=== PATIENT | female | born 1955 | race Caucasian/White ===

== ENCOUNTER → 2017-04-08 | Outpatient (CLI) | payer BC ==
--- NOTE | 2017-04-09 11:19 | MAM ---
EXAM DESCRIPTION: Screening Mammogram,Bilateral CLINICAL HISTORY: 61 yearsFemaleSCREENING. Postmenopausal. Taking HRT five or more years ago. Prior left breast biopsy and lumpectomy.. COMPARISON: Digital screening bilateral examination 11/27/2015 and 09/16/2012. Left breast digital diagnostic mammogram and targeted left breast ultrasound 12/28/2015. Ultrasound-guided needle biopsy 01/25/2016.. No prior reports available. TECHNIQUE: Bilateral CC and MLO projection full-field images, digital screening mammographic technique. CAD was utilized. FINDINGS: The breast parenchymal density pattern is: Scattered areas of fibroglandular density. No skin thickening or nipple retraction . Focal asymmetry in the posterior third of the upper inner quadrant of the left breast at the 1100 clock position is no longer visualized. Oval-shaped fatty necrosis is now seen in the same location. No localization clip is visualized. Bilateral axillary lymph nodes are present. No focal, stellate mass or density, focal asymmetry , and no suspicious microcalcifications bilaterally. IMPRESSION: BI-RADS CATEGORY: 2 - BENIGN FINDINGS. FOLLOW UP: Return to routine digital bilateral screening, one year interval from March 2017. Written communication explaining the findings and follow-up, will be mailed to the patient and referring health care provider. According to the [employer], yearly mammograms are recommended starting at age 40 and continuing as long as a woman is in good health. Any breast change noted on a breast self-exam should be reported promptly to the patient's healthcare provider. Breast MRI is recommended for women with an approximately 20-25% or greater lifetime risk of breast cancer, including women with a strong family history of breast or ovarian cancer and women who have been treated for Hodgkin's disease. A negative mammographic report should not delay tissue diagnosis in patients with significant clinical history or physical findings. Extremely dense breast tissue limits the sensitivity of digital mammography. Electronically signed by: Onel Santiago MD 04/09/2017 11:18 AM CDT Workstation: [id number]
== END ==
LOC: US 11:12
PROVIDERS: ATTEND Family Medicine
DX: Z12.31 Encounter for screening mammogram for malignant neoplasm of breast (principal)

== ENCOUNTER → 2018-01-05 | Outpatient (CLI) | payer BC | END | disposition home or self-care (01) | LOC: GMAL 10:55 | PROVIDERS: ATTEND Family Medicine | DX: Z00.00 Encounter for general adult medical examination without abnormal findings (principal) ==

== ENCOUNTER → 2018-04-16 | Outpatient (CLI) | payer BC ==
--- NOTE | 2018-04-20 08:16 | MAM ---
EXAM DESCRIPTION: 3D Screening BILATERAL : Digital Mammography. CLINICAL HISTORY: 62 years Female SCREEN . No complaints. Left breast cancer with lumpectomy. Sister with breast cancer. Childbirth. Postmenopausal. Has taken HRT 5 or more years ago.. COMPARISON: Digital screening bilateral study 04/08/2017. Report from prior examination also reviewed. TECHNIQUE: Bilateral CC and MLO projection full-field images, 3-D tomosynthesis digital mammographic technique. CAD not utilized. FINDINGS: The breast parenchymal density pattern is: heterogeneously dense breast tissue, which may obscure small masses. No skin thickening or nipple retraction. Right axillary lymph node. Possible intramammary lymph node on the right. Region of fat necrosis with oval-shaped fatty nodule in the posterior third of the left breast at the 12:00 position approximately 8 cm from the nipple stable since the prior study. This is at the site of prior lumpectomy. No new focal, stellate mass or density, focal asymmetry , and no suspicious microcalcifications bilaterally. Stable mammograms compared to prior study, taking into account differences in mammographic technique. IMPRESSION: BI-RADS CATEGORY: 2 - BENIGN FINDINGS. FOLLOW UP: Routine digital bilateral screening, one year interval from March 2018. Written communication explaining the IMPRESSION and follow-up, will be mailed to the patient and referring health care provider. According to the [employer], yearly mammograms are recommended starting at age 40 and continuing as long as a woman is in good health. Any breast change noted on a breast self-exam should be reported promptly to the patient's healthcare provider. Breast MRI is recommended for women with an approximately 20-25% or greater lifetime risk of breast cancer, including women with a strong family history of breast or ovarian cancer and women who have been treated for Hodgkin's disease. A negative mammographic report should not delay tissue diagnosis in patients with significant clinical history or physical findings. Extremely dense breast tissue limits the sensitivity of digital mammography. Electronically signed by: Onel Santiago MD 04/20/2018 8:15 AM CDT
== END ==
LOC: MAMMO 07:56
PROVIDERS: ATTEND Family Medicine
DX: Z12.31 Encounter for screening mammogram for malignant neoplasm of breast (principal)

== ENCOUNTER → 2018-12-03 | Outpatient (CLI) | payer BC ==
--- NOTE | 2018-12-03 16:28 | CT ---
EXAM DESCRIPTION: Soft Tissue Neck w/Contrast: Computed Tomography CLINICAL HISTORY: 63 years Female, LYMPHADENOPATHY R59.9. Neck Pain diffuse. COMPARISON: None. TECHNIQUE: Spiral, axial 2.5 x 2.5 mm scans through the neck soft tissues after infusion of IV contrast. Sagittal and coronal 2.0 mm reconstructions. No adverse reactions. Total Exam DLP: 326.18 mGy-cm. This exam was performed according to our departmental CT dose-optimization program which includes automated exposure control, adjustment of the mA and/or kV according to patient size and/or use of iterative reconstruction technique; to reduce radiation dose to as low as reasonably achievable (ALARA). FINDINGS: 8 x 5 mm enhancing nodule along the lateral margin of the right parotid gland on axial series 2, image 22. Central radiolucency suggests a lymph node. Slightly smaller similar-appearing node on the outer lateral margin of the superior left parotid gland. No other enhancing masses or nodules in the right parotid gland or left parotid gland with other smaller nodes seen bilaterally. Bilateral submandibular glands unremarkable with small adjacent nodes. Sublingual glands are negative. No abnormal enhancement mass or fluid in the subcutaneous adipose tissue. 6 mm and 3 mm short axis lymph nodes in the right carotid space. Smaller nodes in the left carotid space. Partially enhancing lobulated soft tissue mass abutting the right posterior tongue base and partially effacing the right vallecula and extending to the right epiglottis. Dimensions 1.2 x 1.1 cm in the axial plane and 1.9 cm craniocaudal axis. Fat planes in the adjacent parapharyngeal tissues are not well-defined. Thyroid gland unremarkable. No significant disease in the included lung. Arthrosis atlantoaxial joint. Grade 1 anterolisthesis C5-6 and spondylosis C6-7 with narrowing of the neural foramina and canal. IMPRESSION: 1. Mass at the right tongue base also involving the right epiglottis and partially effacing the right vallecula, and maximum dimension almost 2 cm craniocaudal. Malignancy is suspected, more likely than inflammatory process. Loss of fat planes between the hypopharynx and the right submandibular gland. This may indicate involvement of parapharyngeal lymph nodes. Consider laryngoscopic correlation. 2. Small lymph nodes in the bilateral neck, slightly larger in the right carotid space. 3. Spondylosis and abnormal alignment of the cervical spine at several levels. Electronically signed by: Onel Santiago MD 12/03/2018 4:25 PM [facility]
== END ==
LOC: CT 08:50
PROVIDERS: ATTEND Family Medicine
DX: R59.9 Enlarged lymph nodes, unspecified (principal); R22.0 Localized swelling, mass and lump, head; M47.892 Other spondylosis, cervical region

== ENCOUNTER → 2019-04-23 | Outpatient (CLI) | payer BC ==
--- NOTE | 2019-04-26 16:21 | MAM ---
EXAM DESCRIPTION: 3D Screening BILATERAL : Digital Mammography. CLINICAL HISTORY: 63 years Female ANNUAL SCREENING . Breast cancer 3 years left. Lumpectomy. Sister with breast cancer. Childbirth. Postmenopausal. Taking HRT 5 or more years ago.. Lifetime risk of developing breast cancer (Tyrer-Cuzick model)(%): Not calculated due to personal history of breast cancer. COMPARISON: Lateral screening digital breast tomosynthesis 04/16/2018. TECHNIQUE: Bilateral CC and MLO projection full-field images, digital tomosynthesis mammographic technique. Bilateral digital 2-D full-field MLO images. CAD not available for tomosynthesis or 2-D images. FINDINGS: The breast parenchymal density pattern is: Heterogeneously dense breast tissue, which may obscure small masses. No skin thickening or nipple retraction. Region of fatty necrosis and scarring in the posterior superior left breast is decreasing. Left axillary lymph node. Small bilateral microcalcifications are stable. No new focal, stellate mass or density, focal asymmetry , and no suspicious microcalcifications bilaterally. IMPRESSION: Benign exam. BIRAD CATEGORY: 2 BENIGN FINDINGS. RECOMMENDATIONS: FOLLOW UP: Routine digital bilateral mammographic screening, one year interval from March 2019. Written communication explaining the IMPRESSION and follow-up, will be mailed to the patient and referring health care provider. According to the [employer], yearly mammograms are recommended starting at age 40 and continuing as long as a woman is in good health. Any breast change noted on a breast self-exam should be reported promptly to the patient's healthcare provider. Breast MRI is recommended for women with an approximately 20-25% or greater lifetime risk of breast cancer, including women with a strong family history of breast or ovarian cancer and women who have been treated for Hodgkin's disease. A negative mammographic report should not delay tissue diagnosis in patients with significant clinical history or physical findings. Extremely dense breast tissue limits the sensitivity of digital mammography. Electronically signed by: Onel Santiago MD 04/26/2019 4:20 PM CDT
== END ==
LOC: MAMMO 08:00
PROVIDERS: ATTEND Family Medicine
DX: Z12.31 Encounter for screening mammogram for malignant neoplasm of breast (principal)

== ENCOUNTER → 2020-03-21 | Outpatient (CLI) | payer MEDICARE, OTHER | LOC: GMAL 16:39 | PROVIDERS: ATTEND Family Medicine | DX: E53.8 Deficiency of other specified B group vitamins (principal); E55.9 Vitamin D deficiency, unspecified; R53.82 Chronic fatigue, unspecified; E78.49 Other hyperlipidemia; I10 Essential (primary) hypertension; R73.9 Hyperglycemia, unspecified ==

== ENCOUNTER → 2020-07-06 | Outpatient (CLI) | payer MEDICARE, OTHER ==
--- NOTE | 2020-07-07 16:59 | MAM ---
EXAM DESCRIPTION: 3D Screening BILATERAL : Digital Mammography. CLINICAL HISTORY: 65 years Female SCREENING . Personal history of left breast cancer diagnosed 2016. Lumpectomy. Sister with breast cancer age 38.. Lifetime risk of developing breast cancer (Tyrer-Cuzick model)(%): Not calculated due to personal history of breast cancer. COMPARISON: Bilateral screening digital breast tomosynthesis March 2019 and March 2017. TECHNIQUE: Bilateral CC and MLO projection full-field images, digital tomosynthesis mammographic technique. Bilateral digital 2-D full-field MLO images. CAD available for 2-D images. FINDINGS: The breast parenchymal density pattern is: Heterogeneously dense breast tissue, which may obscure small masses. No skin thickening or nipple retraction. Solitary microcalcifications. Axillary nodes. Oval-shaped mass density mostly circumscribed measuring approximately 1.5 x 1.1 x 1.2 cm in the middle third of the left breast near the posterior nipple line. No definite calcifications or spiculations in the margin, but associated with the more dense fibroglandular tissues in the left breast. Well seen on the prior study. No new focal, stellate mass or density, focal asymmetry , and no suspicious microcalcifications right breast. IMPRESSION: BI-RADS CATEGORY: 0 - INCOMPLETE- Need additional imaging evaluation. RECOMMENDATIONS: FOLLOW-UP: Recall for additional imaging: Directed left breast ultrasound to the region of interest. Optional diagnostic left breast tomosynthesis and 2-D images depending on ultrasound findings.. Written communication concerning the IMPRESSION and Follow-up, will be mailed to the patient and referring health care provider. Electronically signed by: Onel Santiago MD 07/07/2020 4:57 PM CDT
== END ==
LOC: MAMMO 08:00
PROVIDERS: ATTEND Family Medicine
DX: Z12.31 Encounter for screening mammogram for malignant neoplasm of breast (principal)

== ENCOUNTER → 2020-07-18 | Outpatient (CLI) | payer MEDICARE, OTHER | LOC: GMAL 15:08 | PROVIDERS: ATTEND Family Medicine | DX: R68.82 Decreased libido (principal) ==

== ENCOUNTER → 2020-07-19 | Outpatient (CLI) | payer MEDICARE, OTHER ==
--- NOTE | 2020-07-20 19:15 | US ---
EXAM DESCRIPTION: Breast,Left: Ultrasound. CLINICAL HISTORY: 65 yearsFemaleABNORMAL MAMMO. Left breast cancer 2016 with lumpectomy. Mass density middle third left breast. COMPARISON: Bilateral screening digital breast tomosynthesis July 06. TECHNIQUE: Transcutaneous scanning of the left breast utilizing davidson-scale and Doppler modes. Scanning performed by the life sciences teacher ; observation by Dr. Santiago FINDINGS: Scanning middle and anterior third of the left breast. Mostly fibroglandular elements with minimal fatty replacement. Well-circumscribed oval-shaped anechoic mass with surrounding echogenic tissue, parallel orientation, posterior acoustic enhancement and no vascularity or internal echoes. Consistent with a cyst. Dimensions are 1.6 x 1.5 x 0.7 cm. Smaller cyst associated with fibroglandular tissues in the adjacent soft tissues measuring 3.7 x 3.2 mm. Same characteristics as the larger cyst. IMPRESSION: Benign exam. BIRAD CATEGORY: 2 BENIGN FINDINGS. RECOMMENDATIONS: FOLLOW UP: Return to routine digital bilateral mammographic screening, one year interval from June 2020. Written communication explaining the IMPRESSION and follow-up, will be mailed to the patient and referring health care provider. The FINDINGS and the FOLLOW-UP plan were reviewed in person with the patient after the examination. According to the [employer], yearly mammograms are recommended starting at age 40 and continuing as long as a woman is in good health. Any breast change noted on a breast self-exam should be reported promptly to the patient's healthcare provider. Breast MRI is recommended for women with an approximately 20-25% or greater lifetime risk of breast cancer, including women with a strong family history of breast or ovarian cancer and women who have been treated for Hodgkin's disease. A negative mammographic report should not delay tissue diagnosis in patients with significant clinical history or physical findings. Extremely dense breast tissue limits the sensitivity of digital mammography. Electronically signed by: Onel Santiago MD 07/20/2020 7:13 PM CDT
== END ==
LOC: US 14:00
PROVIDERS: ATTEND Family Medicine
DX: N60.02 Solitary cyst of left breast (principal)

== ENCOUNTER → 2020-10-06 | Outpatient (CLI) | payer MEDICARE, OTHER | LOC: GMAL 10:31 | PROVIDERS: ATTEND Family Medicine | DX: R68.82 Decreased libido (principal) ==